=== PATIENT | male | born 1955 | race Caucasian/White ===

== ENCOUNTER 2017-05-17 20:58 | Emergency (ER) | payer BC ==
[2017-05-17] MEDS ORDERED: LORAZEPAM 0.5 MG TAB PO ONE (21:06)
[2017-05-17] MEDS ORDERED: LORAZEPAM 0.5 MG TAB ONE (21:09)
[2017-05-17 21:17] LABS: BASOPHILS % (AUTO) 1 % (0-3); EOSINOPHILS % (AUTO) 3 % (0-9); HEMATOCRIT 42 % (39-53); MEAN CORPUSCULAR HGB CONC 33.1 gm/dl (32.0-36.0); MEAN CORPUSCULAR VOLUME 90 fL (80-100); NEUTROPHILS % (AUTO) 49.4 % (37-80)
[2017-05-17 21:36] LABS: ALBUMIN 3.6 gm/dl (3.4-5.0); ALT 28 IU/L (14-63); CALCIUM 8.5 mg/dl (8.5-10.1); GLOM FILT RATE 74 mL/min (>60); POTASSIUM 3.4 mMol/L (3.5-5.1); SODIUM 137 mMol/L (136-145)
[2017-05-17 21:38] VITALS: TEMP 97.8
[2017-05-17 22:10] VITALS: BP 136/87; PULSE 67; RESP 18; O2SAT 98
== END 2017-05-17 22:08 | disposition home or self-care (01) ==
LOC: ED 20:58
DX: F41.0 Panic disorder [episodic paroxysmal anxiety] (principal)
CPT/HCPCS: 36415; 80053; 84484; 85025; 93005; 99283